=== PATIENT | female | born 1945 | race Two or more races ===

== ENCOUNTER 2020-09-10 06:00 | Day surgery (SDC) | payer OTHER | END 2020-09-10 12:50 | disposition home or self-care (01) | LOC: AMB-ENDOS 06:00 | PROVIDERS: ATTEND Surgery | DX: D12.4 Benign neoplasm of descending colon (principal); Z20.822 Contact with and (suspected) exposure to COVID-19 ==

== ENCOUNTER 2020-10-09 10:15 | Inpatient (IN) | payer OTHER ==
[~2020-10-09] VITALS: Ht 152.4 cm; Wt 67.6 kg
[2020-10-09] MEDS ORDERED: LOSARTAN-HCTZ1 EAC1 PO (13:04)
[2020-10-09] MEDS ORDERED: SIMVASTATIN40 MG PO (13:04)
[2020-10-09] MEDS ORDERED: EQUETRO200 MG PO (13:04)
[2020-10-09] MEDS ORDERED: METFORMIN HCL500 M3 PO (13:04)
[2020-10-09] MEDS ORDERED: KAPVAY0.1 MG PO (13:05)
[2020-10-09] MEDS ORDERED: LASIX20 MG PO (13:05)
[2020-10-16] MEDS ORDERED: HYDROCORTISO453.6 GM (08:07)
[2020-10-16] MEDS ORDERED: A/F PAIN RELIE500 MG (08:07)
[2020-10-16] MEDS ORDERED: VITAMIN D3250 MCG (08:08)
[2020-10-20] MEDS ORDERED: PERCOCET 5-3251 EACH PO (11:21)
== END 2020-10-20 14:20 | disposition home or self-care (01) | DRG 330 ==
LOC: O/R 10-16 07:44 → SURG 10-16 07:44 → SURH 10-16 10:15 → SURG 10-16 15:52 → O/R 10-16 16:23 → SURG 10-16 16:29
PROVIDERS: ADMIT Surgery; ATTEND Surgery
PROC: 07BB4ZZ Excision of Mesenteric Lymphatic, Percutaneous Endoscopic Approach (ICD-10-PCS; 2020-10-16)
PROC: 0DTF4ZZ Resection of Right Large Intestine, Percutaneous Endoscopic Approach (ICD-10-PCS; principal; 2020-10-16 11:15)
PROC: 4A12X4Z Monitoring of Cardiac Electrical Activity, External Approach (ICD-10-PCS; 2020-10-18)
DX: C18.0 Malignant neoplasm of cecum (principal); I69.359 Hemiplegia and hemiparesis following cerebral infarction affecting unspecified side; R53.81 Other malaise; K42.9 Umbilical hernia without obstruction or gangrene; R59.0 Localized enlarged lymph nodes; D12.0 Benign neoplasm of cecum; I10 Essential (primary) hypertension; E11.9 Type 2 diabetes mellitus without complications; E66.9 Obesity, unspecified